=== PATIENT | male | born 1940 | race Caucasian/White ===

== ENCOUNTER → 2023-03-27 | Day surgery (SDC) | payer MEDICARE, MEDICAID ==
[~2023-03-27] VITALS: Ht 198.1 cm; Wt 77.1 kg
[~2023-03-27] MED LIST: ACET-2708 PO; AMLO10TA80 PO; ASPI-1406 PO; ATOR20TA65 PO; CALC-26 PO; CHOL400D7 PO; CLON0.1T PO; FAMO-135 PO; FOLI-43 PO; FURO-152 PO; HYDROMORPHONE HCL/PF 2MG/ML CPJ IV PRN; INSU100V37 SQ; INSU100V51 SUBCUT; LABETALOL 5MG/ML SYR 20 MG/4 ML SYRINGE IV PRN; LIDOCAINE HCL 1% 10 MG/ML 10ML VIAL ONE; LOSA50TA41 PO; MEGE400O5 PO; MEPERIDINE HCL/PF 25MG/ML CPJ IV PRN; MULT-1146 PO; ONDANSETRON HCL 4MG/2ML INJ IV PRN; PROPOFOL 200MG/20ML VIAL IV ONE; TOPUD PO; [UNRECOGNIZED DRUG - CODE] IM
== END | disposition home or self-care (01) ==
LOC: OR 09:07
PROVIDERS: ATTEND Internal Medicine Gastroenterology
DX: K62.5 Hemorrhage of anus and rectum (principal); K57.30 Diverticulosis of large intestine without perforation or abscess without bleeding; K64.8 Other hemorrhoids; K63.89 Other specified diseases of intestine; E11.9 Type 2 diabetes mellitus without complications; E78.5 Hyperlipidemia, unspecified; I11.0 Hypertensive heart disease with heart failure; I50.9 Heart failure, unspecified; Z79.82 Long term (current) use of aspirin; Z79.4 Long term (current) use of insulin; Z79.899 Other long term (current) drug therapy; Z98.890 Other specified postprocedural states
CPT/HCPCS: 82962; 93005; 45378; J3490; J2704; Z7610 ×7